=== PATIENT | male | born 1970 | race African-American/Black ===

== ENCOUNTER 2017-08-22 02:02 | Emergency (ER) | payer OTHER, SELFPAY | END 2017-08-22 04:16 | disposition home or self-care (01) | LOC: ERS 02:02 | DX: Z02.89 Encounter for other administrative examinations (principal) | CPT/HCPCS: 99282 ==

== ENCOUNTER 2024-03-16 13:29 | Inpatient (IN) | payer BC, SELFPAY ==
[2024-03-16] MEDS ORDERED: Tenecteplase 50 MG ONE (15:30)
[2024-03-16 17:17] LABS: #Basophils Less than 0.03 10x3/uL (0.0-0.2); %Basophils 0.3 % (0.0-1.0); %Eosinophils 0.6 % (0.0-10.0); %Lymphocytes 29.5 % (21.0-51.0); %Neutrophils 64.3 % (42.0-75.0); Hematocrit 43.8 % (42.0-52.0); Hemoglobin 14.9 g/dL (14.0-18.0); Mean Corpuscular Hemoglobin 28.3 pg (27.0-31.0); Mean Corpuscular Volume 83.1 fL (78.0-98.0); Mean Platelet Volume 10.6 fL (7.4-10.4); Platelet Count 199 10x3/uL (130-400); RBC Distribution Width 13.4 % (11.5-14.5); Red Blood Cell (RBC) Count 5.27 mill/uL (4.70-6.10)
[2024-03-16 17:30] LABS: Prothrombin Time 13.4 sec (12.0-14.7)
[2024-03-16 17:31] LABS: PTT 21.2 sec (22.9-36.1)
[2024-03-16 17:35] LABS: ALT (SGPT) 15 U/L (Less than 45); AST (SGOT) 24 U/L (11-34); Alkaline Phosphatase 63 U/L (40-110); Anion Gap 13 mmol/L (10-20); BUN (Urea Nitrogen) 10 mg/dL (8.4-25.7); Bilirubin, Total 0.6 mg/dL (0.3-1.2); Calc. Creatinine Clearance 91 mL/min (70-130); Calcium 9.4 mg/dL (7.8-10.44); Carbon Dioxide 21 mmol/L (22-29); Chloride 107 mmol/L (98-107); Estimated GFR 71; Glucose 90 mg/dL (70-105); Sodium 137 mmol/L (136-145)
[2024-03-16 17:39] LABS: Troponin I Less than 0.010 ng/mL (< 0.028)
[2024-03-16 18:00] LABS: Acetaminophen Less than 10 mcg/mL (Less than 10); Alcohol Less than 10.0 mg/dL (Less than 10); Cardiac Risk 4.6 (Less than 4.5); Cholesterol 170 mg/dl (< 200 Desired); HDL Cholesterol 37 mg/dL (>60 Neg Risk); LDL Cholesterol, Calculated 117 mg/dL; Salicylate Less than 8.0 mg/dL (Less than 8.0); Triglycerides 81 mg/dL (Less than 150)
[2024-03-16 18:28] LABS: Hemoglobin A1c 5.8 % (4.0-6.0)
[2024-03-16 19:44] VITALS: BMI 28.3
[2024-03-16] MEDS ORDERED: Acetaminophen 650 MG Suppository PR PRN (22:20)
[2024-03-17] MEDS ORDERED: Labetalol HCl 100 MG/20 ML VIAL SLOW IVP PRN (07:05)
[2024-03-17 07:57] LABS: Amphetamine Not Detected (NotDetected); Barbiturates Screen Not Detected (NotDetected); Benzodiazepine Screen Not Detected (NotDetected); Cocaine Metabolite Screen Not Detected (NotDetected); Methadone Not Detected (NotDetected); Methamphetamine Not Detected (NotDetected); Opiate Screen Not Detected (NotDetected); Oxycodone Screen Not Detected (NotDetected); Phencyclidine (PCP) Not Detected (NotDetected); THC/Cannabinoid Screen Not Detected (NotDetected); Tricyclic Screen Not Detected (NotDetected)
[2024-03-17] MEDS: Famotidine 20 MG TAB PO SCH (08:37)
[2024-03-17 13:14] VITALS: BMI 28.3
[2024-03-17] MEDS: Atorvastatin Calcium 40 MG TAB PO SCH (20:43)
[2024-03-17 20:56] VITALS: BP 130/79
[2024-03-17] MEDS: Gabapentin 300 MG CAP PO PRN (21:13)
[2024-03-17] MEDS: Acetaminophen 325 MG TAB PO PRN (21:13)
[2024-03-18 07:24] LABS: #Basophils 0.03 10x3/uL (0.0-0.2); %Basophils 0.5 % (0.0-1.0); %Eosinophils 1.2 % (0.0-10.0); %Monocytes 6.3 % (0.0-10.0); %Neutrophils 55.8 % (42.0-75.0); Hematocrit 43.9 % (42.0-52.0); Hemoglobin 14.5 g/dL (14.0-18.0); Mean Corpuscular Hemoglobin 28.3 pg (27.0-31.0); Mean Corpuscular Volume 85.7 fL (78.0-98.0); Mean Platelet Volume 9.6 fL (7.4-10.4); Platelet Count 224 10x3/uL (130-400); RBC Distribution Width 13.5 % (11.5-14.5); Red Blood Cell (RBC) Count 5.12 mill/uL (4.70-6.10)
[2024-03-18 07:50] LABS: ALT (SGPT) 14 U/L (Less than 45); AST (SGOT) 19 U/L (11-34); Albumin 3.8 g/dL (3.1-4.5); Alkaline Phosphatase 65 U/L (40-110); Anion Gap 14 mmol/L (10-20); BUN (Urea Nitrogen) 10 mg/dL (8.4-25.7); Bilirubin, Total 0.4 mg/dL (0.3-1.2); Calc. Creatinine Clearance 0 mL/min (70-130); Calcium 9.1 mg/dL (7.8-10.44); Carbon Dioxide 20 mmol/L (22-29); Chloride 109 mmol/L (98-107); Estimated GFR 72; Globulin 2.9 g/dL (2.4-3.5); Glucose 106 mg/dL (70-105); Potassium 3.9 mmol/L (3.5-5.1); Protein, Total 6.7 g/dL (6.0-8.3); Sodium 139 mmol/L (136-145)
[2024-03-18] MEDS: Enoxaparin 40 MG (0.4 mL) SYRINGE SC SCH (08:42)
[2024-03-18] MEDS: Aspirin 81 mg Enteric Coated Tablet PO SCH (08:42)
[2024-03-18 08:57] VITALS: TEMP 97.5
== END 2024-03-18 15:30 | disposition home or self-care (01) | DRG 63 ==
LOC: ERS 13:29 → EDBD 13:29 → ERHOLD 16:12 → CCU 18:21
PROVIDERS: ADMIT Student in an Organized Health Care Education/Training Program; ATTEND Student in an Organized Health Care Education/Training Program
DX: I63.512 Cerebral infarction due to unspecified occlusion or stenosis of left middle cerebral artery (principal); M54.30 Sciatica, unspecified side; M54.9 Dorsalgia, unspecified; G89.29 Other chronic pain; G83.14 Monoplegia of lower limb affecting left nondominant side; Z79.899 Other long term (current) drug therapy; R29.704 NIHSS score 4
CPT/HCPCS: 36415; 37195; 70450; 70496; 70498; 70551; 71045; 80053; 80061; 80306; 80307; 83036; 84443; 84484; 85025; 85610; 85730; 86850; 86900; 86901; 93005; 93306; 94760; 99292; J1650; J3101